=== PATIENT | male | born 1985 | race Caucasian/White ===

== ENCOUNTER 2016-12-03 02:55 | Emergency (ER) | payer OTHER ==
[2016-12-03 05:27] VITALS: BP 131/71
--- NOTE | 2016-12-03 05:27 | ED Physician Documentation ---
PD HPI SKIN - Stated complaint Stated Complaint: AMANDA ANKLE RASH - Chief complaint Chief Complaint: Wound - History obtained from History obtained from: Patient - History of Present Illness Timing - onset: Yesterday Timing - details: Gradual onset, Constant Location: RLE, LLE Quality / character: Painful, Swelling Contributing factors: Unknown Similar symptoms before: Has not had sx before Recently seen: Not recently seen Review of Systems Constitutional: denies: Fever Skin: reports: Rash PD PAST MEDICAL HISTORY - Past Medical History Cardiovascular: None Respiratory: Other Neuro: Head injury Endocrine/Autoimmune: None GI: None : None HEENT: None Psych: Post traumatic stress disorder Musculoskeletal: None Derm: None - Past Surgical History Past Surgical History: Yes Derm: Other - Present Medications Home Medications: Ambulatory Orders Medication Instructions Recorded Confirmed Sulfamethox/Trimeth 800/160 1 each PO BID #14 tablet 12/03/16 [Bactrim Ds 800/160] - Allergies Allergies/Adverse Reactions: Allergies Allergy/AdvReac Type Severity Reaction Status Date / Time erythromycin base Allergy Unknown Verified 12/23/14 10:38 - Social History Does the pt smoke?: Yes Smoking Status: Current every day smoker Does the pt drink ETOH?: Yes Does the pt have substance abuse?: No - Immunizations Immunizations are current?: Yes PD ED PE NORMAL - Vitals Vital signs reviewed: Yes - General General: Alert and oriented X 3, No acute distress, Well developed/nourished - Extremities Extremities: No edema PD ED PE EXPANDED - Extremities Feet visual: 1 - rash 2 - rash Results - Vitals Vitals: Oxygen O2 Source Room air PD MEDICAL DECISION MAKING - ED course Complexity details: considered differential, d/w patient Departure - Departure Disposition: 01 Home, Self Care Clinical Impression: Cellulitis Condition: Good Instructions: ED Infec Skin Cellulitis Prescriptions: Sulfamethox/Trimeth 800/160 [Bactrim Ds 800/160] 1 each PO BID #14 tablet Discharge Date/Time: 12/03/16 05:49
[2016-12-03] MEDS ORDERED: SULFAMETH/TRIMETH DS 800/160 MG TABLET PO STA (05:39)
[2016-12-03] MEDS ORDERED: SULFAMETH/TRIMETH DS 800/160 MG TABLET PO ONE (05:48)
== END 2016-12-03 05:49 | disposition home or self-care (01) ==
LOC: ED 02:55
DX: L03.116 Cellulitis of left lower limb (principal); L03.115 Cellulitis of right lower limb; F17.200 Nicotine dependence, unspecified, uncomplicated
CPT/HCPCS: 99283; A9270

== ENCOUNTER 2017-04-15 12:38 | Emergency (ER) | payer BC, OTHER ==
[2017-04-15 12:59] VITALS: BP 126/83
--- NOTE | 2017-04-15 13:13 | ED Physician Documentation ---
History of Present Illness - Stated complaint Stated Complaint: R LEG ABCESS - Chief complaint Chief Complaint: General - History obtained from History obtained from: Patient - History of Present Illness Timing: Other (He was exposed to staph at work by a coworker. He noticed a painless spot above the medial right ankle today while showering and is quite worried about it. No fevers.) Review of Systems Constitutional: denies: Fever, Chills Cardiac: reports: Reviewed and negative Respiratory: reports: Reviewed and negative PD PAST MEDICAL HISTORY - Past Medical History Cardiovascular: None Respiratory: Other Neuro: Head injury Endocrine/Autoimmune: None GI: None : None HEENT: None Psych: Post traumatic stress disorder Musculoskeletal: None Derm: None - Past Surgical History Past Surgical History: Yes Derm: Other - Allergies Allergies/Adverse Reactions: Allergies Allergy/AdvReac Type Severity Reaction Status Date / Time erythromycin base Allergy Unknown Verified 04/15/17 12:59 - Social History Does the pt smoke?: Yes Smoking Status: Current every day smoker Does the pt drink ETOH?: Yes Does the pt have substance abuse?: No - Immunizations Immunizations are current?: Yes PD ED PE NORMAL - Vitals Vital signs reviewed: Yes - General General: Alert and oriented X 3, No acute distress - Extremities Extremities: Other (2 small areas of ecchymosis (one nickel sized, on quarter sized) just above the medial malleolus of the right ankle that are nontender, no warmth or cellulitis or calf tenderness.) Results - Vitals Vitals: Vital Signs - 24 hr 04/15/17 12:57 Temperature 37.1 C Heart Rate 74 Respiratory 18 Rate Blood Pressure 126/83 H O2 Saturation 99 Oxygen O2 Source Room air Departure - Departure Disposition: 01 Home, Self Care Clinical Impression: Traumatic ecchymosis of right lower leg Qualifiers: Encounter type: initial encounter Qualified Code(s): S80.11XA - Contusion of right lower leg, initial encounter Condition: Good Record reviewed to determine appropriate education?: Yes Comments: If it worsens or becomes red or becomes painful please return for reevaluation or if you run a fever. Discharge Date/Time: 04/15/17 13:17
== END 2017-04-15 13:17 | disposition home or self-care (01) ==
LOC: ED 12:38
DX: S80.11XA Contusion of right lower leg, initial encounter (principal); X58.XXXA Exposure to other specified factors, initial encounter; F17.200 Nicotine dependence, unspecified, uncomplicated
CPT/HCPCS: 99281; 99282

== ENCOUNTER 2017-04-24 12:56 | Emergency (ER) | payer BC ==
[2017-04-24] MEDS ORDERED: DEXAMETHASONE 10 MG/ML VIAL PO STA (13:46)
--- NOTE | 2017-04-24 13:48 | ED Physician Documentation ---
PD HPI URI - Stated complaint Stated Complaint: THROAT PX - Chief complaint Chief Complaint: Heent - History obtained from History obtained from: Patient - History of Present Illness Timing - onset: Last night Timing duration: Days (1) Timing details: Gradual onset Pain level max: 5 Pain level now: 5 Associated symptoms: Fever, Chills, Nasal congestion, Rhinorrhea, Sore throat, Dry cough. No: Dyspnea, NVD, Bilateral edema Contributing factors: Sick contact Improves by: Rest Worsened by: Activity, Breathing Recently seen: Not recently seen Review of Systems Constitutional: reports: Fever, Chills Nose: reports: Rhinorrhea / runny nose, Congestion Throat: reports: Sore throat Cardiac: denies: Chest pain / pressure Respiratory: reports: Cough GI: denies: Nausea, Vomiting Skin: denies: Rash Musculoskeletal: denies: Neck pain, Back pain Neurologic: denies: Headache PD PAST MEDICAL HISTORY - Past Medical History Past Medical History: Yes Cardiovascular: None Respiratory: Other Neuro: Head injury Endocrine/Autoimmune: None GI: None : None HEENT: None Psych: Post traumatic stress disorder Musculoskeletal: None Derm: None - Past Surgical History Past Surgical History: Yes Derm: Other - Present Medications Home Medications: Ambulatory Orders Medication Instructions Recorded Confirmed Benzonatate [Tessalon Perle] 100 - 200 mg PO TID PRN #30 capsule 04/24/17 Cetirizine HCl/Pseudoephedrine 1 each PO BID PRN #30 tab.er.12h 04/24/17 [Zyrtec-D Tablet] Ibuprofen [Motrin] 800 mg PO Q8H PRN #30 tablet 04/24/17 - Allergies Allergies/Adverse Reactions: Allergies Allergy/AdvReac Type Severity Reaction Status Date / Time erythromycin base Allergy Unknown Verified 04/24/17 13:06 - Social History Does the pt smoke?: No Smoking Status: Never smoker Does the pt drink ETOH?: Yes Does the pt have substance abuse?: No - Immunizations Immunizations are current?: Yes PD ED PE NORMAL - Vitals Vital signs reviewed: Yes - General General: Alert and oriented X 3, No acute distress, Well developed/nourished - HEENT HEENT: PERRL, Ears normal, Moist mucous membranes, Other (Mild posterior oropharyngeal erythema without tonsillar exudates. Uvula midline. Normal phonation. No trismus) - Neck Neck: Supple, no meningeal sign, No adenopathy - Cardiac Cardiac: RRR, Strong equal pulses - Respiratory Respiratory: No respiratory distress, Clear bilaterally - Abdomen Abdomen: Soft, Non tender, Non distended - Derm Derm: Warm and dry - Extremities Extremities: No edema, No calf tenderness / cord - Neuro Neuro: Alert and oriented X 3 - Psych Psych: Normal mood, Normal affect Results - Vitals Vitals: Vital Signs - 24 hr 04/24/17 04/24/17 13:04 14:39 Temperature 36.4 C L 36.3 C L Heart Rate 58 L 58 L Respiratory 18 16 Rate Blood Pressure 134/59 H 123/86 H O2 Saturation 96 98 Oxygen O2 Source Room air - Labs Labs: Laboratory Tests 04/24/17 04/24/17 13:17 13:57 Influenza A (Rapid) Negative Influenza B (Rapid) Negative Influenza Types A,B Ag - Group A Strep Rapid Negative PD MEDICAL DECISION MAKING - ED course Complexity details: reviewed results, re-evaluated patient, considered differential, d/w patient ED course: Patient is a 32-year-old male who presents to the emergency department what appears to be a viral syndrome. Negative influenza. Negative rapid strep. He is well-appearing, nontoxic. Tolerating p.o. without difficulty. Well- hydrated. No evidence of pneumonia clinically. Will continue supportive care and follow-up with his doctor. Patient counseled regarding signs and symptoms for which I believe and urgent re-evaluation would be necessary. Patient with good understanding of and agreement to plan and is comfortable going home at this time This document was made in part using voice recognition software. While efforts are made to proofread this document, sound alike and grammatical errors may occur. Departure - Departure Disposition: 01 Home, Self Care Clinical Impression: Viral syndrome Condition: Good Instructions: ED Viral Syndrome Follow-Up: your,doctor in 1 week [Other] Prescriptions: Benzonatate [Tessalon Perle] 100 - 200 mg PO TID PRN #30 capsule PRN Reason: Cough Cetirizine HCl/Pseudoephedrine [Zyrtec-D Tablet] 1 each PO BID PRN #30 tab.er.12h PRN Reason: Nasal Congestion Ibuprofen [Motrin] 800 mg PO Q8H PRN #30 tablet PRN Reason: PAIN &/OR FEVER Comments: Return if you worsen. Drink plenty of fluids and rest. Forms: Activity restrictions Discharge Date/Time: 04/24/17 14:41
[2017-04-24 14:39] VITALS: BP 123/86
== END 2017-04-24 14:41 | disposition home or self-care (01) ==
LOC: ED 12:56
DX: B34.9 Viral infection, unspecified (principal)
CPT/HCPCS: 87070; 87275; 87276; 87430; 99283

== ENCOUNTER 2017-12-17 13:51 | Outpatient (CLI) | payer BC ==
--- NOTE | 2017-12-17 20:02 | XRAY Report ---
Reason: ASTHMA Procedure Date: 12/17/2017 Accession Number: [id number] / [id number] Procedure: XR - Chest 2 View X-Ray CPT Code: 18187 FULL RESULT: EXAM: CHEST RADIOGRAPHY EXAM DATE: 12/17/2017 02:21 PM. CLINICAL HISTORY: ASTHMA. COMPARISON: XR CHEST PA AND LAT 03/13/2012 10:58 AM. TECHNIQUE: 2 views. FINDINGS: Heart size is normal. No consolidation, pleural effusion, or pneumothorax. Coarse parenchymal markings bilaterally, as well as hyperexpanded, hyperlucent lung piedra, likely related to known chronic airways disease. IMPRESSION: Chronic airways disease. No evidence of focal pneumonia. RADIA
== END 2017-12-17 13:52 | disposition home or self-care (01) ==
LOC: DI 13:51
PROVIDERS: ATTEND Specialist
DX: J45.909 Unspecified asthma, uncomplicated (principal)
CPT/HCPCS: 71046

== ENCOUNTER 2018-01-16 14:54 | Outpatient (CLI) | payer BC ==
--- NOTE | 2018-01-16 23:05 | Ultrasound Report ---
Reason: LEFT SIDE OF NECK MASS Procedure Date: 01/16/2018 Accession Number: [id number] / [id number] Procedure: US - Head or Neck Soft Tissue CPT Code: FULL RESULT: EXAM: NECK ULTRASOUND EXAM DATE: 01/16/2018 04:04 PM. CLINICAL HISTORY: 2 cm left neck mass located 3 cm below the jaw. COMPARISON: None. TECHNIQUE: Real-time sonographic imaging was performed by the knitting machine operator helper utilizing color-flow. Multiple lead generation representative static images were saved for review. FINDINGS: Targeted evaluation of the area of palpable concern reveals normal appearance of the underlying left submandibular gland, which measures 3.9 x 1.1 x 3.8 cm. No mass, fluid collection, or adenopathy. IMPRESSION: Normal appearing submandibular gland corresponding to the area of concern. RADIA
== END 2018-01-16 14:55 | disposition home or self-care (01) ==
LOC: DI 14:54
PROVIDERS: ATTEND Specialist
DX: R22.1 Localized swelling, mass and lump, neck (principal)
CPT/HCPCS: 76536

== ENCOUNTER 2018-06-25 13:40 | Emergency (ER) | payer BC ==
[2018-06-25 13:57] VITALS: BP 133/82
--- NOTE | 2018-06-25 14:00 | ED Physician Documentation ---
PD HPI URI - Stated complaint Stated Complaint: THROAT PAIN - Chief complaint Chief Complaint: Heent - History obtained from History obtained from: Patient - History of Present Illness Timing - onset: How many days ago (2-3) Timing duration: Days Timing details: Gradual onset, Waxing and waning Associated symptoms: Sore throat. No: Fever Recently seen: Clinic (He had similar symptoms about a month ago and was on Augmentin for 2 weeks with clearance of his symptoms after several days to week and had been without symptoms for 2 weeks. He now has a return of the similar throat pain on the left tonsil area.) Review of Systems Constitutional: denies: Fever Nose: denies: Sinus pressure / pain Throat: reports: Sore throat Respiratory: denies: Cough PD PAST MEDICAL HISTORY - Past Medical History Cardiovascular: None Respiratory: Other Endocrine/Autoimmune: None GI: None : None HEENT: None Psych: Post traumatic stress disorder Musculoskeletal: None Derm: None - Past Surgical History Past Surgical History: Yes Derm: Other - Present Medications Home Medications: Ambulatory Orders Medication Instructions Recorded Confirmed Cephalexin [Keflex] 500 mg PO TID #30 capsule 06/25/18 Dexamethasone [Decadron] 4 mg PO DAILY #5 tablet 06/25/18 Gabapentin 0 mg 06/25/18 Tramadol HCl 50 mg PO Q6H PRN #15 tablet 06/25/18 - Allergies Allergies/Adverse Reactions: Allergies Allergy/AdvReac Type Severity Reaction Status Date / Time erythromycin base Allergy Unknown Verified 06/25/18 13:57 - Social History Does the pt smoke?: No Smoking Status: Never smoker Does the pt drink ETOH?: Yes Does the pt have substance abuse?: No - Immunizations Immunizations are current?: Yes PD ED PE NORMAL - Vitals Vital signs reviewed: Yes - General General: Alert and oriented X 3, Well developed/nourished - HEENT HEENT: No: Pharynx benign (tonsils with swelling and exudate. No peritonsillar swelling.) - Neck Neck: Supple, no meningeal sign, Other (anterior adenopathy.) - Cardiac Cardiac: RRR, No murmur - Respiratory Respiratory: Clear bilaterally - Derm Derm: Normal color, Warm and dry, No rash Results - Vitals Vitals: Vital Signs - 24 hr 06/25/18 13:50 Temperature 36.1 C L Heart Rate 63 Respiratory 16 Rate Blood Pressure 133/82 H O2 Saturation 97 Oxygen O2 Source Room air PD MEDICAL DECISION MAKING - ED course Complexity details: considered differential, d/w patient Departure - Departure Disposition: 01 Home, Self Care Clinical Impression: Acute tonsillitis Qualifiers: Pharyngitis/tonsillitis etiology: unspecified etiology Qualified Code(s): J03.90 - Acute tonsillitis, unspecified Condition: Stable Record reviewed to determine appropriate education?: Yes Instructions: ED Strep Pharyngitis Poss Follow-Up: [facility] [Provider Group] Prescriptions: Cephalexin [Keflex] 500 mg PO TID #30 capsule Dexamethasone [Decadron] 4 mg PO DAILY #5 tablet Tramadol HCl 50 mg PO Q6H PRN #15 tablet PRN Reason: Pain Comments: Stay well-hydrated. Tylenol or ibuprofen if needed for pains. Use Decadron daily for 5 days for inflammation of the tonsil. Cephalexin as prescribed for the infection. Add Tramadol as needed for pains. Recheck if not improving over the next few days. Discharge Date/Time: 06/25/18 14:44
[2018-06-25] MEDS ORDERED: DEXAMETHASONE 10 MG/ML VIAL PO STA (14:28)
[2018-06-25] MEDS ORDERED: NAPROXEN 250 MG TABLET PO STA (14:28)
[2018-06-25] MEDS ORDERED: CHERRY SYRUP 10 ML UDC PO ONE (14:28)
[2018-06-25] MEDS ORDERED: cephALEXin 250 MG CAPSULE PO STA (14:28)
== END 2018-06-25 14:44 | disposition home or self-care (01) ==
LOC: ED 13:40
DX: J03.90 Acute tonsillitis, unspecified (principal)
CPT/HCPCS: 99283; A9270

== ENCOUNTER 2019-06-20 11:49 | Emergency (ER) | payer BC ==
[2019-06-20 12:04] VITALS: BP 126/84
--- NOTE | 2019-06-20 12:27 | ED Physician Documentation ---
PD HPI HEENT - Stated complaint Stated Complaint: HAIRY TONGUE - Chief complaint Chief Complaint: Heent - History obtained from History obtained from: Patient (34-year-old gentleman presents presents with mild tongue discomfort over the last couple of days. He has had thrush before from asthma inhalers and worries that might be it. Currently he is only on albuterol though. No sore throat.) Review of Systems Constitutional: denies: Fever, Chills Cardiac: denies: Chest pain / pressure, Palpitations Respiratory: denies: Dyspnea, Cough PD PAST MEDICAL HISTORY - Past Medical History Cardiovascular: None Respiratory: Other Endocrine/Autoimmune: None GI: None : None HEENT: None Psych: Post traumatic stress disorder Musculoskeletal: None Derm: None - Past Surgical History Past Surgical History: Yes Derm: Other - Present Medications Home Medications: Ambulatory Orders Medication Instructions Recorded Confirmed Gabapentin 360 mg PO BID 06/25/18 - Allergies Allergies/Adverse Reactions: Allergies Allergy/AdvReac Type Severity Reaction Status Date / Time erythromycin base Allergy Unknown Verified 06/20/19 12:04 - Social History Does the pt smoke?: No Smoking Status: Never smoker Does the pt drink ETOH?: Yes Does the pt have substance abuse?: No - Immunizations Immunizations are current?: Yes PD ED PE NORMAL - Vitals Vital signs reviewed: Yes - General General: Alert and oriented X 3, No acute distress - HEENT HEENT: Other (He has a mild case of hairy tongue. Tonsils are normal, no adenopathy. No evidence of thrush.) - Neuro Neuro: Alert and oriented X 3, Normal speech Results - Vitals Vitals: Vital Signs - 24 hr 06/20/19 11:59 Temperature 37 C Heart Rate 63 Respiratory 17 Rate Blood Pressure 126/84 H O2 Saturation 98 Oxygen O2 Source Room air Departure - Departure Disposition: 01 Home, Self Care Clinical Impression: Brown hairy tongue Condition: Good Record reviewed to determine appropriate education?: Yes Comments: As discussed this is a mild self-limiting condition, you should increase oral hygiene. Return for new or worsening symptoms. Follow-up with your dentist, next available appointment.
== END 2019-06-20 12:31 | disposition home or self-care (01) ==
LOC: ED 11:49
DX: K14.3 Hypertrophy of tongue papillae (principal)
CPT/HCPCS: 99281; 99282

== ENCOUNTER 2019-08-30 16:42 | Outpatient (CLI) | payer BC | END 2019-08-30 16:43 | disposition critical access hospital (66) | LOC: EMS 16:42 | PROVIDERS: ATTEND Surgery | DX: R45.851 Suicidal ideations (principal) | CPT/HCPCS: A0425; A0429 ==

== ENCOUNTER 2019-08-30 17:00 | Emergency (ER) | payer BC ==
[2019-08-30 17:34] LABS: BASOPHILS # (AUTO) 0.1 10^3/uL (0.0-0.1); BASOPHILS % (AUTO) 0.6 %; EOSINOPHILS # (AUTO) 0.2 10^3/uL (0.0-0.7); EOSINOPHILS % (AUTO) 2.5 %; HGB - HEMOGLOBIN 14.4 g/dL (14.0-18.0); LYMPHOCYTES # (AUTO) 2.1 10^3/uL (1.5-3.5); LYMPHOCYTES % (AUTO) 25.3 %; MEAN CORPUSCULAR HEMOGLOBIN 29.6 pg (27.0-31.0); MEAN CORPUSCULAR HGB CONC 33.2 g/dL (32.0-36.0); MEAN CORPUSCULAR VOLUME 89.1 fL (80.0-94.0); MEAN PLATELET VOLUME 9.7 fL (7.4-11.4); MONOCYTES # (AUTO) 0.7 10^3/uL (0.0-1.0); MONOCYTES % (AUTO) 7.8 %; NEUTROPHILS # (AUTO) 5.3 10^3/uL (1.5-6.6); NEUTROPHILS % (AUTO) 63.4 %; PLT - PLATELET COUNT 239 10^3/uL (130-450); RED BLOOD COUNT 4.87 10^6/uL (4.70-6.10); RED CELL DISTRIBUTION WIDTH 12.8 % (12.0-15.0); WHITE BLOOD COUNT 8.4 x10^3/uL (4.8-10.8)
[2019-08-30 17:45] LABS: ACETAMINOPHEN < 10 ug/mL (10-30); ALBUMIN 4.6 g/dL (3.2-5.5); ALBUMIN/GLOBULIN RATIO 1.5 (1.0-2.2); ALKALINE PHOSPHATASE 55 IU/L (42-121); ALT ALANINE AMINOTRANSFERASE 42 IU/L (10-60); AST ASPARTATE AMINOTRANSFERASE 50 IU/L (10-42); BILIRUBIN,TOTAL 1.1 mg/dL (0.2-1.0); BUN - BLOOD UREA NITROGEN 13 mg/dL (6-20); CALCIUM 9.4 mg/dL (8.5-10.3); CARBON DIOXIDE - CO2 29 mmol/L (21-32); CHLORIDE 101 mmol/L (101-111); GLUCOSE 92 mg/dL (70-100); LIPASE 28 U/L (22-51); SALICYLATE < 6.0 mg/dL; SODIUM 138 mmol/L (135-145); TOTAL PROTEIN 7.6 g/dL (6.7-8.2)
--- NOTE | 2019-08-30 17:47 | ED Physician Documentation ---
History of Present Illness - Stated complaint Stated Complaint: MHE - Chief complaint Chief Complaint: MHE - History obtained from History obtained from: Patient, EMS - History of Present Illness Timing: Prior to arrival - Additonal information Additional information: 34-year-old gentleman brought to the emergency department through EMS when his mental health provider [facility] requested that he be transported to the hospital for suicidal ideation. His psychologist is Dr. Silva with the [facility] was trying to arrange a bed for inpatient mental health examination. We called psych at the [facility] and they reports that they do not have any bed availability. Patient reports that he has thoughts of self-harm. He has he attempted to use a pistol in the past (2016 pistol misfired) Today He would like to drown himself. He does not feel safe to go home. He denies auditory or visual hallucinations. 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 Meds: gabapentin and trazadone prn for sleep Denies that he has every been on any antidepressants or mood stabilizers Review of Systems Constitutional: denies: Fever, Chills, Myalgias Cardiac: denies: Chest pain / pressure, Palpitations, Pedal edema Respiratory: denies: Dyspnea, Cough, Hemoptysis GI: denies: Abdominal Pain, Abdominal Swelling : denies: Dysuria, Frequency Skin: denies: Rash, Lesions Musculoskeletal: denies: Neck pain Psychiatric: reports: Depressed, Suicidal, Insomnia. denies: Hallucinations, Delusions PD PAST MEDICAL HISTORY - Past Medical History Cardiovascular: None Respiratory: Other Endocrine/Autoimmune: None GI: None : None HEENT: None Psych: Post traumatic stress disorder Musculoskeletal: None Derm: None - Past Surgical History Past Surgical History: Yes Derm: Other - Present Medications Home Medications: Ambulatory Orders Medication Instructions Recorded Confirmed Gabapentin 360 mg PO BID 06/25/18 08/30/19 traZODone [Desyrel] 1 tab PO DAILY 08/30/19 08/30/19 - Allergies Allergies/Adverse Reactions: Allergies Allergy/AdvReac Type Severity Reaction Status Date / Time erythromycin base Allergy Unknown Verified 08/30/19 17:23 - Social History Does the pt smoke?: No Smoking Status: Never smoker Does the pt drink ETOH?: Yes Does the pt have substance abuse?: No - Immunizations Immunizations are current?: Yes PD ED PE NORMAL - General General: Alert and oriented X 3, No acute distress, Well developed/nourished - HEENT HEENT: Atraumatic, PERRL, EOMI - Neck Neck: No adenopathy - Cardiac Cardiac: RRR, No murmur - Respiratory Respiratory: No respiratory distress, Clear bilaterally - Abdomen Abdomen: Normal bowel sounds, Non tender - Back Back: No CVA TTP - Extremities Extremities: No deformity, No tenderness to palpate - Neuro Neuro: Alert and oriented X 3, fbi profiler 2-12 intact, No motor deficit Eye Opening: Spontaneous Motor: Obeys Commands Verbal: Oriented GCS Score: 15 - Psych Psych: Other (Depressed affect. Reports that he does not feel safe for discharge. Has thoughts of self-harm with the intention of drowning himself.) Results - Vitals Vitals: Vital Signs - 24 hr 08/30/19 08/30/19 17:11 19:31 Temperature 37.1 C Heart Rate 57 L 52 L Respiratory 16 16 Rate Blood Pressure 133/83 H 134/84 H O2 Saturation 98 100 Oxygen O2 Source Room air - Labs Labs: Laboratory Tests 08/30/19 08/30/19 08/30/19 17:24 17:24 17:24 WBC 8.4 RBC 4.87 Hgb 14.4 Hct 43.4 MCV 89.1 MCH 29.6 MCHC 33.2 RDW 12.8 Plt Count 239 MPV 9.7 Neut # (Auto) 5.3 Lymph # (Auto) 2.1 Stone # (Auto) 0.7 Eos # (Auto) 0.2 Baso # (Auto) 0.1 Absolute Nucleated RBC 0.00 Nucleated RBC % 0.0 Sodium 138 Potassium 3.9 Chloride 101 Carbon Dioxide 29 Anion Gap 8.0 BUN 13 Creatinine 1.0 Estimated GFR (MDRD) 85 L Glucose 92 Calcium 9.4 Total Bilirubin 1.1 H AST 50 H ALT 42 Alkaline Phosphatase 55 Total Protein 7.6 Albumin 4.6 Globulin 3.0 Albumin/Globulin Ratio 1.5 Lipase 28 TSH 1.34 Urine Color Urine Clarity Urine pH Ur Specific [place] Urine Protein Urine Glucose (UA) Urine Ketones Urine Occult Blood Urine Nitrite Urine Bilirubin Urine Urobilinogen Ur Leukocyte Esterase Ur Microscopic Review Urine Culture Comments Salicylates < 6.0 Urine Opiates Screen Ur Oxycodone Screen Urine Methadone Screen Ur Propoxyphene Screen Acetaminophen < 10 L Ur Barbiturates Screen Ur Tricyclics Screen Ur Phencyclidine Scrn Ur Amphetamine Screen U Methamphetamines Scrn U Benzodiazepines Scrn Urine Cocaine Screen U Cannabinoids Screen Ethyl Alcohol < 5.0 08/30/19 18:29 WBC RBC Hgb Hct MCV MCH MCHC RDW Plt Count MPV Neut # (Auto) Lymph # (Auto) Stone # (Auto) Eos # (Auto) Baso # (Auto) Absolute Nucleated RBC Nucleated RBC % Sodium Potassium Chloride Carbon Dioxide Anion Gap BUN Creatinine Estimated GFR (MDRD) Glucose Calcium Total Bilirubin AST ALT Alkaline Phosphatase Total Protein Albumin Globulin Albumin/Globulin Ratio Lipase TSH Urine Color YELLOW Urine Clarity CLEAR Urine pH 6.5 Ur Specific [place] <=1.005 Urine Protein NEGATIVE Urine Glucose (UA) NEGATIVE Urine Ketones NEGATIVE Urine Occult Blood NEGATIVE Urine Nitrite NEGATIVE Urine Bilirubin NEGATIVE Urine Urobilinogen 0.2 (NORMAL) Ur Leukocyte Esterase NEGATIVE Ur Microscopic Review NOT INDICATED Urine Culture Comments NOT INDICATED Salicylates Urine Opiates Screen NEGATIVE Ur Oxycodone Screen NEGATIVE Urine Methadone Screen NEGATIVE Ur Propoxyphene Screen NEGATIVE Acetaminophen Ur Barbiturates Screen NEGATIVE Ur Tricyclics Screen NEGATIVE Ur Phencyclidine Scrn NEGATIVE Ur Amphetamine Screen NEGATIVE U Methamphetamines Scrn NEGATIVE U Benzodiazepines Scrn NEGATIVE Urine Cocaine Screen NEGATIVE U Cannabinoids Screen POSITIVE H Ethyl Alcohol PD MEDICAL DECISION MAKING - ED course Complexity details: reviewed results, re-evaluated patient, d/w patient ED course: 34-year-old former gentleman presents to the emergency department for thoughts of suicidal ideation. His current plan would be to weigh himself down and drown himself. He seeks help voluntarily. - He is medically cleared. Tox screen + for cannabis only - I have spoken with the [facility] and they report that they have no bed availability and with current COVID-19 they are not excepting transfers - We will attempt to call different psychiatric facilities overnight to try and find a safe plan for this gentleman. However otherwise I have placed a social work consult for him to be seen in the a.m. - [facility] would not accept without a negative COVID 19 which is pending. - Emi Charles reports a capacity [facility] is evaluating the chart and will call us later if he is accepted for transfer Departure - Departure Clinical Impression: Suicidal ideation
[2019-08-30 18:35] LABS: MUDS CUTOFF CONCENTRATIONS CUTOFF CONC BELOW:
[2019-08-30 18:45] LABS: BILIRUBIN,URINE NEGATIVE (NEGATIVE); GLUCOSE, URINE (UA) NEGATIVE (NEGATIVE); KETONES,URINE (UA) NEGATIVE (NEGATIVE); LEUKOCYTE ESTERASE, URINE NEGATIVE (NEGATIVE); NITRITE,URINE NEGATIVE (NEGATIVE); OCCULT BLOOD,URINE NEGATIVE (NEGATIVE); PH,URINE 6.5 PH (5.0-7.5); PROTEIN,URINE NEGATIVE (NEGATIVE); UROBILINOGEN,URINE 0.2 (NORMAL) E.U./dL (NORMAL)
[2019-08-30 18:49] LABS: CLARITY,URINE CLEAR (CLEAR)
[2019-08-30 18:58] LABS: AMPHETAMINE SCREEN,URINE NEGATIVE (NEGATIVE); BENZODIAZEPINES SCREEN, URINE NEGATIVE (NEGATIVE); COCAINE SCREEN URINE NEGATIVE (NEGATIVE); METHADONE SCREEN, URINE NEGATIVE (NEGATIVE); METHAMPHETAMINES SCREEN, URINE NEGATIVE (NEGATIVE); OPIATE SCREEN, URINE NEGATIVE (NEGATIVE); OXYCODONE SCREEN, URINE NEGATIVE (NEGATIVE); PROPOXYPHENE SCREEN, URINE NEGATIVE (NEGATIVE); TRICYCLIC ANTIDEPRESSANT,URINE NEGATIVE (NEGATIVE)
[2019-08-31 07:14] VITALS: BP 126/62
[2019-08-31] MEDS ORDERED: MUPIROCIN 2% OINT 1 GM TOP STA (08:00)
== END 2019-08-31 08:15 ==
LOC: EDUNIT# → ED 17:00
DX: F32.9 Major depressive disorder, single episode, unspecified (principal); R45.851 Suicidal ideations; F43.10 Post-traumatic stress disorder, unspecified; Z11.59 Encounter for screening for other viral diseases
CPT/HCPCS: 36415; 80320; 80329; 81003; 83690; 87635; 99284; 99285; A9270; 80053; 80306; 80307; 81001; 81599; 84443; 85025; 87086

== ENCOUNTER 2020-04-09 17:37 | Emergency (ER) | payer BC ==
[2020-04-09 17:43] VITALS: BP 155/85
[2020-04-09 18:01] LABS: RAPID STREP SCREEN Negative (Negative)
[2020-04-09] MEDS ORDERED: IBUPROFEN 800 MG TABLET PO STA (18:04)
[2020-04-09] MEDS ORDERED: predniSONE 20 MG TABLET PO STA (18:05)
--- NOTE | 2020-04-09 18:06 | ED Physician Documentation ---
PD HPI HEENT - Stated complaint Stated Complaint: THROAT PX - Chief complaint Chief Complaint: Heent - History obtained from History obtained from: Patient (Developed bilateral ear pain, sore throat with spots in his mouth starting today. No associated fevers or cough.) Review of Systems Constitutional: reports: Reviewed and negative Ears: reports: Reviewed and negative Nose: reports: Reviewed and negative PD PAST MEDICAL HISTORY - Past Medical History Cardiovascular: None Respiratory: Other Endocrine/Autoimmune: None GI: None : None HEENT: None Psych: Post traumatic stress disorder Musculoskeletal: None Derm: None - Past Surgical History Past Surgical History: Yes Derm: Other - Present Medications Home Medications: Ambulatory Orders Medication Instructions Recorded Confirmed traZODone [Desyrel] 1 tab PO DAILY 08/30/19 04/09/20 Gabapentin [Neurontin] 300 mg PO TID 04/09/20 04/09/20 predniSONE [Deltasone] 60 mg PO DAILY 5 Days #15 tablet 04/09/20 - Allergies Allergies/Adverse Reactions: Allergies Allergy/AdvReac Type Severity Reaction Status Date / Time erythromycin base Allergy Unknown Verified 04/09/20 17:40 - Social History Does the pt smoke?: No Smoking Status: Never smoker Does the pt drink ETOH?: Yes Does the pt have substance abuse?: No - Immunizations Immunizations are current?: Yes PD ED PE NORMAL - Vitals Vital signs reviewed: Yes - General General: Alert and oriented X 3, No acute distress - HEENT HEENT: PERRL, EOMI, Ears normal (No otitis, But he has sclerosis) - Neck Neck: No adenopathy, Other (He has ulcers on the soft palate and buccal mucosa with generalized redness of the oropharynx without specific signs of tonsillitis.) - Neuro Neuro: Alert and oriented X 3, Normal speech - Psych Psych: Normal mood, Normal affect Results - Vitals Vitals: Vital Signs - 24 hr 04/09/20 17:40 Temperature 36.5 C Heart Rate 88 Respiratory 16 Rate Blood Pressure 155/85 H O2 Saturation 96 Oxygen O2 Source Room air - Labs Labs: Laboratory Tests 04/09/20 17:44 Group A Strep Rapid Negative Departure - Departure Disposition: 01 Home, Self Care Clinical Impression: Viral syndrome Condition: Good Record reviewed to determine appropriate education?: Yes Instructions: ED Viral Syndrome Prescriptions: predniSONE [Deltasone] 60 mg PO DAILY 5 Days #15 tablet Comments: Your strep test is negative and exam is inconsistent with strep. It looks more like a viral process. Return for new or worsening symptoms but the steroids should help with the inflammation.
== END 2020-04-09 18:10 | disposition home or self-care (01) ==
LOC: ED 17:37
DX: B34.9 Viral infection, unspecified (principal); K12.1 Other forms of stomatitis; K13.79 Other lesions of oral mucosa; H73.899 Other specified disorders of tympanic membrane, unspecified ear
CPT/HCPCS: 87070; 87430; 99283; 99284; A9270; J7512; 87077

== ENCOUNTER 2020-10-17 04:13 | Emergency (ER) | payer OTHER, BC ==
--- NOTE | 2020-10-17 05:27 | ED Physician Documentation ---
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 Patient states he also was feeling nauseated and a little agitated. His skin was abnormally pale. Much of the symptomatology has resolved by now since patient has been out of the vaporized area for a couple of hours. No other complaints at this time. No fevers or chills. No chronic lung disease. Review of Systems Ten Systems: 10 systems reviewed and negative Constitutional: reports: Reviewed and negative Eyes: reports: Reviewed and negative Ears: reports: Reviewed and negative Nose: reports: Reviewed and negative Throat: reports: Reviewed and negative Cardiac: reports: Reviewed and negative Respiratory: reports: Cough GI: reports: Nausea : reports: Reviewed and negative Skin: reports: Reviewed and negative Musculoskeletal: reports: Reviewed and negative Neurologic: reports: Reviewed and negative Psychiatric: reports: Reviewed and negative Endocrine: reports: Reviewed and negative Immunocompromised: reports: Reviewed and negative PD PAST MEDICAL HISTORY - Past Medical History Past Medical History: Yes Cardiovascular: None Respiratory: Other Endocrine/Autoimmune: None GI: None : None HEENT: None Psych: Post traumatic stress disorder Musculoskeletal: None Derm: None Other Past Medical History: neuropathy - Past Surgical History Past Surgical History: Yes Derm: Other - Present Medications Home Medications: Ambulatory Orders Medication Instructions Recorded Confirmed traZODone [Desyrel] 1 tab PO DAILY 08/30/19 10/17/20 Gabapentin [Neurontin] 300 mg PO TID 04/09/20 10/17/20 predniSONE [Deltasone] 60 mg PO DAILY 5 Days #15 tablet 04/09/20 - Allergies Allergies/Adverse Reactions: Allergies Allergy/AdvReac Type Severity Reaction Status Date / Time erythromycin base Allergy Unknown Verified 10/17/20 04:27 - Social History Does the pt smoke?: No Smoking Status: Never smoker Does the pt drink ETOH?: Yes Does the pt have substance abuse?: No - Immunizations Immunizations are current?: Yes PD ED PE NORMAL - Vitals Vital signs reviewed: Yes - General General: Alert and oriented X 3, No acute distress, Well developed/nourished - HEENT HEENT: Atraumatic, PERRL, EOMI, Moist mucous membranes - Neck Neck: Supple, no meningeal sign - Cardiac Cardiac: RRR, No murmur, Strong equal pulses - Respiratory Respiratory: Clear bilaterally - Abdomen Abdomen: Soft, Non tender, Non distended - Derm Derm: Normal color, Warm and dry, No rash - Extremities Extremities: No deformity, No edema - Neuro Neuro: Alert and oriented X 3 - Psych Psych: Normal mood, Normal affect Results - Vitals Vitals: Vital Signs - 24 hr 10/17/20 10/17/20 10/17/20 04:27 04:31 05:41 Temperature 36.4 C L 36.4 C L 36.5 C Heart Rate 68 68 66 Respiratory 21 21 18 Rate Blood Pressure 141/88 H 141/88 H 130/95 H O2 Saturation 99 99 97 Oxygen O2 Source Room air - EKG (time done) 0429 Rate: Rate (enter#) (56) Rhythm: NSR Odon: Normal Intervals: Normal CO QRS: Normal Ischemia: Normal ST segments Compare to prior EKG: Old EKG unavailable Computer interpretation: Agree with computer - Rads (name of study) CXR Radiology: Final report received, EMP read indepedently, See rad report (neg) PD MEDICAL DECISION MAKING - ED course Complexity details: reviewed results, re-evaluated patient, considered differential, d/w patient ED course: The patient was worked up with EKG and chest x-ray series and both looked quite good actually. I discussed with the patient the best treatment for his symptoms is to stay away from the chemicals for a few days so he can recover. 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 We have discussed the usual indications for return. Departure - Departure Disposition: 01 Home, Self Care Clinical Impression: Toxic effect of unspecified gases, fumes and vapors, accidental (unintent ional), initial encounter Condition: Stable Instructions: ED Inhalation Chemical Comments: Your chest x-ray shows some possible, slight inflammation in the bottom of your right lung. Other than that, though, your x-ray looks good. Your EKG also looks good. At this point in time, the most important thing is to stay away from the chemicals until you are feeling better. You should also continue to push for the company to provide you with the proper safety equipment so that you do not continue to have exposure to these vapors. Long-term exposure can not only damage your lungs, but also your brain cells. Please take the next couple of days off to allow yourself time to recover before you go back to work. Forms: Activity restrictions Discharge Date/Time: 10/17/20 05:56
[2020-10-17 05:41] VITALS: BP 130/95
--- NOTE | 2020-10-17 09:29 | XRAY Report ---
PROCEDURE: Chest 1 View X-Ray INDICATIONS: chest pain TECHNIQUE: One view of the chest was acquired. COMPARISON: 12/17/2017 FINDINGS: Surgical changes and devices: None. Lungs and pleura: No pleural effusions or pneumothorax. Lungs are clear. Mediastinum: Mediastinal contours appear normal. Heart size is normal. Bones and chest wall: No suspicious bony lesions. Overlying soft tissues appear unremarkable. IMPRESSION: No acute cardiopulmonary disease. Reviewed by: Nguyen Bowser MD on 10/17/2020 9:28 AM PDT Approved by: Nguyen Bowser MD on 10/17/2020 9:28 AM PDT Station ID: [id number]
== END 2020-10-17 05:56 | disposition home or self-care (01) ==
LOC: ED 04:13
DX: T59.91XA Toxic effect of unspecified gases, fumes and vapors, accidental (unintentional), initial encounter (principal)
CPT/HCPCS: 93005; 99283

== ENCOUNTER 2021-02-08 15:40 | Outpatient (CLI) | payer BC, OTHER ==
[2021-02-09 00:22] LABS: CHLAMYDIA TRACHOMATIS DNA NEGATIVE (NEGATIVE); NEISSERIA GONORRHOEAE DNA NEGATIVE (NEGATIVE)
== END 2021-02-08 23:59 | disposition home or self-care (01) ==
LOC: LAB 15:40
PROVIDERS: ATTEND Physician Assistant
DX: R30.0 Dysuria (principal)
CPT/HCPCS: 87491; 87591; 87661

== ENCOUNTER 2021-04-09 08:00 | Outpatient (CLI) | payer BC, OTHER ==
[2021-04-09 11:47] LABS: MUDS CUTOFF CONCENTRATIONS CUTOFF CONC BELOW:
[2021-04-09 18:28] LABS: BASOPHILS # (AUTO) 0.1 10^3/uL (0.0-0.1); BASOPHILS % (AUTO) 0.4 %; EOSINOPHILS # (AUTO) 0.2 10^3/uL (0.0-0.7); EOSINOPHILS % (AUTO) 1.4 %; HCT - HEMATOCRIT 46.8 % (42.0-52.0); HGB - HEMOGLOBIN 15.5 g/dL (14.0-18.0); LYMPHOCYTES # (AUTO) 4.1 10^3/uL (1.5-3.5); LYMPHOCYTES % (AUTO) 34.4 %; MEAN CORPUSCULAR HEMOGLOBIN 30.1 pg (27.0-31.0); MEAN CORPUSCULAR HGB CONC 33.1 g/dL (32.0-36.0); MEAN CORPUSCULAR VOLUME 90.9 fL (80.0-94.0); MEAN PLATELET VOLUME 10.5 fL (7.4-11.4); MONOCYTES # (AUTO) 1.2 10^3/uL (0.0-1.0); MONOCYTES % (AUTO) 9.7 %; NEUTROPHILS # (AUTO) 6.4 10^3/uL (1.5-6.6); NEUTROPHILS % (AUTO) 53.8 %; PLT - PLATELET COUNT 289 10^3/uL (130-450); RED BLOOD COUNT 5.15 10^6/uL (4.70-6.10)
[2021-04-09 18:30] LABS: BILIRUBIN,URINE NEGATIVE (NEGATIVE); GLUCOSE, URINE (UA) NEGATIVE (NEGATIVE); KETONES,URINE (UA) NEGATIVE (NEGATIVE); LEUKOCYTE ESTERASE, URINE NEGATIVE (NEGATIVE); NITRITE,URINE NEGATIVE (NEGATIVE); OCCULT BLOOD,URINE NEGATIVE (NEGATIVE); PH,URINE 6.5 PH (5.0-7.5); PROTEIN,URINE NEGATIVE (NEGATIVE); UROBILINOGEN,URINE 0.2 (NORMAL) E.U./dL (NORMAL)
[2021-04-09 18:49] LABS: ALBUMIN/GLOBULIN RATIO 1.4 (1.0-2.2); BILIRUBIN,TOTAL 0.5 mg/dL (0.2-1.0); CALCIUM 9.8 mg/dL (8.5-10.3); CLARITY,URINE CLEAR (CLEAR); POTASSIUM 3.9 mmol/L (3.5-5.0); TOTAL PROTEIN 8.7 g/dL (6.7-8.2)
[2021-04-09 18:50] LABS: AMPHETAMINE SCREEN,URINE NEGATIVE (NEGATIVE); BACTERIA,URINE None Seen /HPF (None Seen); BARBITURATE SCREEN,UR NEGATIVE (NEGATIVE); BENZODIAZEPINES SCREEN, URINE NEGATIVE (NEGATIVE); COCAINE SCREEN URINE NEGATIVE (NEGATIVE); METHADONE SCREEN, URINE NEGATIVE (NEGATIVE); METHAMPHETAMINES SCREEN, URINE NEGATIVE (NEGATIVE); OPIATE SCREEN, URINE NEGATIVE (NEGATIVE); OXYCODONE SCREEN, URINE NEGATIVE (NEGATIVE); PROPOXYPHENE SCREEN, URINE NEGATIVE (NEGATIVE); RBC,URINE None Seen /HPF (0-5); SQUAMOUS EPITHELIAL CELL,UR NONE SEEN (<= Few); THC CANNABINOID SCREEN, URINE POSITIVE (NEGATIVE); TRICYCLIC ANTIDEPRESSANT,URINE NEGATIVE (NEGATIVE); WBC,URINE 0-3 /HPF (0-3)
== END 2021-04-09 23:59 | disposition home or self-care (01) ==
LOC: LAB.N 08:00
PROVIDERS: ATTEND Nurse Practitioner
DX: R10.9 Unspecified abdominal pain (principal)
CPT/HCPCS: 36415; 80053; 80306; 81001; 82150; 83690; 85025; 87086

== ENCOUNTER 2021-04-10 11:05 | Emergency (ER) | payer BC, OTHER ==
--- NOTE | 2021-04-10 11:38 | ED Physician Documentation ---
History of Present Illness - Stated complaint Stated Complaint: LT SIDE PAIN - Chief complaint Chief Complaint: Abd Pain - Additonal information Additional information: 36-year-old male presents the emergency department for evaluation of left lower quadrant abdominal pain. He also has intermittent dysuria and difficulty urinating. Symptoms began about 3 months ago in mid December. States that he was tested for STDs and ultimately found negative. He finds it in the morning after drinking a lot he feels like his kidneys drain causing pressure in his urethra. No fevers, no vomiting. No pertinent past surgical history of the abdomen. Patient states that the pain was the worst it ever been this morning thus he presents to the ER. Review of Systems Constitutional: denies: Fever, Chills Nose: reports: Reviewed and negative Throat: reports: Reviewed and negative Cardiac: reports: Reviewed and negative Respiratory: reports: Reviewed and negative GI: reports: Abdominal Pain. denies: Nausea, Vomiting : reports: Dysuria. denies: Hematuria, Discharge Skin: denies: Rash, Lesions Musculoskeletal: reports: Reviewed and negative Neurologic: reports: Reviewed and negative PD PAST MEDICAL HISTORY - Past Medical History Cardiovascular: None Respiratory: Other Endocrine/Autoimmune: None GI: None : None HEENT: None Psych: Post traumatic stress disorder Musculoskeletal: None Derm: None - Past Surgical History Past Surgical History: Yes Derm: Other - Present Medications Home Medications: Ambulatory Orders Medication Instructions Recorded Confirmed traZODone [Desyrel] 50 mg PO DAILY 08/30/19 04/10/21 Gabapentin [Neurontin] 1,200 mg PO TID 04/09/20 04/10/21 - Allergies Allergies/Adverse Reactions: Allergies Allergy/AdvReac Type Severity Reaction Status Date / Time erythromycin base Allergy Unknown Verified 04/10/21 11:09 - Social History Does the pt smoke?: No Smoking Status: Never smoker Does the pt drink ETOH?: Yes Does the pt have substance abuse?: No - Immunizations Immunizations are current?: Yes PD ED PE NORMAL - General General: Alert and oriented X 3, No acute distress - HEENT HEENT: PERRL - Neck Neck: Supple, no meningeal sign, No adenopathy - Cardiac Cardiac: RRR, No murmur, No gallop - Abdomen Abdomen: Normal bowel sounds, Soft. No: Non tender (Tenderness of the left lower quadrant and left flank without guarding or rebound. 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 Eye Opening: Spontaneous Motor: Obeys Commands Verbal: Oriented GCS Score: 15 - Psych Psych: Normal mood Results - Vitals Vitals: Vital Signs - 24 hr 04/10/21 04/10/21 11:11 14:00 Temperature 36.5 C 36.7 C Heart Rate 73 69 Respiratory 20 16 Rate Blood Pressure 128/81 H 119/89 H O2 Saturation 97 97 Oxygen O2 Source Room air - Labs Labs: Laboratory Tests 04/10/21 04/10/21 04/10/21 11:35 11:35 11:44 WBC 8.6 RBC 5.04 Hgb 14.9 Hct 44.3 MCV 87.9 MCH 29.6 MCHC 33.6 RDW 13.0 Plt Count 283 MPV 9.3 Neut # (Auto) 4.9 Lymph # (Auto) 2.6 Darke # (Auto) 0.9 Eos # (Auto) 0.2 Baso # (Auto) 0.1 Absolute Nucleated RBC 0.00 Nucleated RBC % 0.0 Sodium 136 Potassium 4.1 Chloride 99 L Carbon Dioxide 27 Anion Gap 10.0 BUN 21 H Creatinine 1.0 Estimated GFR (MDRD) 84 L Glucose 81 Calcium 9.6 Total Bilirubin 0.5 AST 46 H ALT 52 Alkaline Phosphatase 61 Total Protein 8.0 Albumin 4.6 Globulin 3.4 Albumin/Globulin Ratio 1.4 Lipase 32 Urine Color YELLOW Urine Clarity CLEAR Urine pH 6.0 Ur Specific [place] 1.020 Urine Protein NEGATIVE Urine Glucose (UA) NEGATIVE Urine Ketones NEGATIVE Urine Occult Blood TRACE-INTA Urine Nitrite NEGATIVE Urine Bilirubin NEGATIVE Urine Urobilinogen 0.2 (NORMAL) Ur Leukocyte Esterase NEGATIVE Ur Microscopic Review NOT INDICATED Urine Culture Comments NOT INDICATED - Rads (name of study) CT abd Radiology: Final report received (No definite acute intra-abdominal abnormality. Specifically no evidence of diverticulosis or obstructive uropathy.) PD MEDICAL DECISION MAKING - ED course Complexity details: reviewed old records, reviewed results, re-evaluated patient, considered differential, d/w patient ED course: 36-year-old male presents to the emergency department for evaluation of 3 months intermittent left lower quadrant abdominal pain however over the last week symptoms have become more persistent. He was also noting some changes in his urinary frequency and pain with urination. On exam I was able to reproduce some mild left flank and CVA tenderness. His screening labs showed no leukocytosis worrisome electrolyte abnormality or findings of infection in the urine/hematuria. CT of the abdomen also did not reveal any obstructive uropathy or diverticulitis. Given the duration of the symptoms it is not likely this gentleman has an occult surgical pathology. I did recommend patient take Tylenol and ibuprofen for discomfort. Advise close follow-up with primary care provider. Emergent return precautions otherwise discussed. Departure - Departure Disposition: 01 Home, Self Care Clinical Impression: LLQ abdominal pain Condition: Stable Record reviewed to determine appropriate education?: Yes Instructions: ED Abdominal Pain Unkn Cause Male Comments: Artur henry are seen in the emergency department today for left lower abdominal pain that has been ongoing for quite a while. Your screening labs did not show any worrisome findings. At the time of your exam I was concerned that you could have a obstructing kidney stone or findings of diverticulitis. Reassuringly the CAT scan did not show any such findings. You do not have a hernia. The cause of your pain is not clear though I would like you to try taking ibuprofen or Tylenol [id number] at home for discomfort. If you find that the pain is worsening, you develop fevers, have uncontrolled vomiting then please return immediately to the ER for a second evaluation. Discharge Date/Time: 04/10/21 14:02
[2021-04-10 11:41] LABS: BASOPHILS # (AUTO) 0.1 10^3/uL (0.0-0.1); BASOPHILS % (AUTO) 0.7 %; EOSINOPHILS # (AUTO) 0.2 10^3/uL (0.0-0.7); EOSINOPHILS % (AUTO) 2.2 %; HCT - HEMATOCRIT 44.3 % (42.0-52.0); HGB - HEMOGLOBIN 14.9 g/dL (14.0-18.0); LYMPHOCYTES # (AUTO) 2.6 10^3/uL (1.5-3.5); LYMPHOCYTES % (AUTO) 29.8 %; MEAN CORPUSCULAR HEMOGLOBIN 29.6 pg (27.0-31.0); MEAN CORPUSCULAR HGB CONC 33.6 g/dL (32.0-36.0); MEAN CORPUSCULAR VOLUME 87.9 fL (80.0-94.0); MEAN PLATELET VOLUME 9.3 fL (7.4-11.4); MONOCYTES # (AUTO) 0.9 10^3/uL (0.0-1.0); MONOCYTES % (AUTO) 10.2 %; NEUTROPHILS # (AUTO) 4.9 10^3/uL (1.5-6.6); NEUTROPHILS % (AUTO) 56.9 %; PLT - PLATELET COUNT 283 10^3/uL (130-450); RED BLOOD COUNT 5.04 10^6/uL (4.70-6.10); WHITE BLOOD COUNT 8.6 x10^3/uL (4.8-10.8)
[2021-04-10] MEDS ORDERED: IOVERSOL 320 100 ML VIAL IVP ONE (11:46)
[2021-04-10 11:52] LABS: BILIRUBIN,URINE NEGATIVE (NEGATIVE); GLUCOSE, URINE (UA) NEGATIVE (NEGATIVE); KETONES,URINE (UA) NEGATIVE (NEGATIVE); LEUKOCYTE ESTERASE, URINE NEGATIVE (NEGATIVE); NITRITE,URINE NEGATIVE (NEGATIVE); OCCULT BLOOD,URINE TRACE-INTA (NEGATIVE); PROTEIN,URINE NEGATIVE (NEGATIVE); UROBILINOGEN,URINE 0.2 (NORMAL) E.U./dL (NORMAL)
[2021-04-10 11:54] LABS: ALBUMIN 4.6 g/dL (3.2-5.5); ALBUMIN/GLOBULIN RATIO 1.4 (1.0-2.2); BILIRUBIN,TOTAL 0.5 mg/dL (0.2-1.0); CALCIUM 9.6 mg/dL (8.5-10.3); POTASSIUM 4.1 mmol/L (3.5-5.0)
[2021-04-10 11:55] LABS: CLARITY,URINE CLEAR (CLEAR)
[2021-04-10] MEDS: SODIUM CHLORIDE 0.9% 1,000 ML IV STA (12:00)
[2021-04-10] MEDS: HYDROmorphone 1 MG/ML CARPUJECT IVP STA (12:04)
--- NOTE | 2021-04-10 13:37 | CT Report ---
PROCEDURE: Abdomen/Pelvis W INDICATIONS: LLQ and left flank pain CONTRAST: IV CONTRAST: Optiray 320 ml: 100 PO CONTRAST: *NO PO CONTRAST TECHNIQUE: After the administration of intravenous contrast, 5 mm thick sections acquired from the diaphragms to the symphysis. 5 mm thick coronal and sagittal reformats were acquired. For radiation dose reducti on, the following was used: automated exposure control, adjustment of mA and/or kV according to kelsea ent size. COMPARISON: None. FINDINGS: Image quality: Excellent. ABDOMEN: Lung bases: There is dependent atelectasis bilaterally. Heart size is normal. Solid organs:Evaluation of the liver demonstrates no focal hepatic lesions. Gallbladder appears withi n normal limits without calcified gallstones. Biliary system is non dilated. The spleen is normal in size. Pancreas enhances normally without peripancreatic fat stranding or fluid collections. No adre nal nodules. Kidneys demonstrate no hydronephrosis. There is symmetric enhancement of the kidneys bi laterally. No discrete renal stones identified. Peritoneum and bowel: Bowel loops demonstrate normal wall thickness and caliber. The appendix is nor mal in appearance. There is colonic diverticulosis without acute diverticulitis. No free fluid or air . Nodes and vessels: No retroperitoneal or mesenteric adenopathy by size criteria. Aorta and inferior vena cava are normal in size. Miscellaneous: No ventral hernias. PELVIS: Genitourinary: Bladder wall thickness is normal. Miscellaneous: No inguinal hernias or adenopathy. Bones: No suspicious bony lesions. No vertebral body compression fractures. IMPRESSION: 1. No definite acute intra-abdominal abnormality. Specifically, no evidence of diverticulitis or obst ructive uropathy. Reviewed by: Agustín Ruffin MD on 04/10/2021 1:36 PM [facility] Approved by: Agustín Ruffin MD on 04/10/2021 1:36 PM PST Station ID: [id number]
[2021-04-10 14:01] VITALS: BP 119/89
[2021-04-10] MEDS: IOVERSOL 320 100 ML VIAL IVP ONE (17:11)
== END 2021-04-10 14:02 | disposition home or self-care (01) ==
LOC: ED 11:05
DX: R10.32 Left lower quadrant pain (principal)
CPT/HCPCS: 36415; 74177; 80053; 81003; 83690; 85025; 96374; 99282; 99284; J1170; Q9967; 81001; 87086

== ENCOUNTER 2021-05-18 21:41 | Emergency (ER) | payer BC ==
[2021-05-18 22:04] VITALS: BP 144/77
--- NOTE | 2021-05-18 23:24 | ED Physician Documentation ---
PD HPI UPPER EXT INJURY - Stated complaint Stated Complaint: L WRIST INJURY - Chief complaint Chief Complaint: Trauma Ext - History obtained from History obtained from: Patient - History of Present Illness Location: Left, Wrist Type of injury: Fall Where injury occurred: Other (roller skating rink) Timing - onset: Enter time (21:00), Today Improved by: Rest Worsened by: Moving, Palpating Associated symptoms: Swelling. No: Weakness, Numbness Similar symptoms before: Has not had sx before Recently seen: Emergency Dept - Additonal information Additional information: c/o sudden onset left wrist pain , 9 PM tonight when he fell while roller skating. He is right hand dominant. Denies head injury, denies LOC. Review of Systems Musculoskeletal: reports: Joint pain, Joint swelling. denies: Neck pain, Back pain Neurologic: denies: Headache, Head injury PD PAST MEDICAL HISTORY - Past Medical History Cardiovascular: None Respiratory: Other Endocrine/Autoimmune: None GI: None : None HEENT: None Psych: Post traumatic stress disorder Musculoskeletal: None Derm: None - Past Surgical History Past Surgical History: Yes Derm: Other - Present Medications Home Medications: Ambulatory Orders Medication Instructions Recorded Confirmed traZODone [Desyrel] 50 mg PO DAILY 08/30/19 05/19/21 Gabapentin [Neurontin] 1,200 mg PO TID 04/09/20 05/19/21 - Allergies Allergies/Adverse Reactions: Allergies Allergy/AdvReac Type Severity Reaction Status Date / Time erythromycin base Allergy Unknown Verified 05/19/21 17:12 - Social History Does the pt smoke?: No Smoking Status: Never smoker Does the pt drink ETOH?: Yes Does the pt have substance abuse?: No - Immunizations Immunizations are current?: Yes PD ED PE NORMAL - Vitals Vital signs reviewed: Yes - General General: Alert and oriented X 3, No acute distress, Well developed/nourished - Derm Derm: Normal color, Warm and dry - Neuro Neuro: No sensory deficit (LTS intact distal LUE) PD ED PE EXPANDED - Extremities AMANDA UE/Hands Visual: 1 - swelling, tenderness Results - Vitals Vitals: Oxygen O2 Source Room air - Rads (name of study) left wrist xrays Radiology: Prelim report reviewed, See rad report left hand xrays Radiology: Prelim report reviewed, See rad report PD MEDICAL DECISION MAKING - ED course Complexity details: reviewed results, re-evaluated patient, considered differential, d/w patient ED course: fall onto outstretched LUE while roller skating tonight. No acute findings on left wrist xrays. Splint applied, results reviewed with patient. Follow up and return precautions discussed prior to discharge. Given ibuprofen in ED prior to discharge. Departure - Departure Disposition: Home, Self Care Clinical Impression: Left wrist sprain Qualifiers: Encounter type: initial encounter Qualified Code(s): S63.502A - Unspecified sp rain of left wrist, initial encounter Condition: Good Instructions: ED Splint Care MARTHA Hernandez Sprain Wrist Discharge Date/Time: 05/18/21 23:56
--- NOTE | 2021-05-18 23:36 | XRAY Report ---
PROCEDURE: Wrist 4 View LT INDICATIONS: fall, pain and tenderness TECHNIQUE: 4 views of the wrist were acquired. COMPARISON: None. FINDINGS: Bones: No acute fractures or dislocations. No suspicious bony lesions. Scaphoid view: Intact scaphoid. Soft tissues: No suspicious soft tissue calcifications. Mild soft tissue edema around the wrist. IMPRESSION: No acute osseous abnormality. If there is clinical concern or persistent symptoms, additional imaging such as repeat radiographs or advanced imaging (e.g. CT, MRI) may be helpful for further evaluation. Reviewed by: Ramakrishna Maldonado MD on 05/18/2021 11:36 PM PST Approved by: Ramakrishna Maldonado MD on 05/18/2021 11:36 PM [facility] Station ID: [id number]
--- NOTE | 2021-05-18 23:37 | XRAY Report ---
PROCEDURE: Hand 3 View LT INDICATIONS: fall, pain and tenderness TECHNIQUE: 4 views of the hand acquired. COMPARISON: None. FINDINGS: Bones: No acute fractures or dislocations. No suspicious bony lesions. Soft tissues: No suspicious soft tissue calcifications. Mild soft tissue edema at the dorsum of the hand. IMPRESSION: No acute osseous abnormality. If there is clinical concern or persistent symptoms, additional imaging such as repeat radiographs or advanced imaging (e.g. CT, MRI) may be helpful for further evaluation. Reviewed by: Ramakrishna Maldonado MD on 05/18/2021 11:37 PM PST Approved by: Ramakrishna Maldonado MD on 05/18/2021 11:37 PM PST Station ID: [id number]
[2021-05-18] MEDS ORDERED: IBUPROFEN 600 MG TABLET PO STA (23:40)
== END 2021-05-18 23:56 | disposition home or self-care (01) ==
LOC: ED 21:41
DX: S63.502A Unspecified sprain of left wrist, initial encounter (principal); W18.30XA Fall on same level, unspecified, initial encounter; Y93.51 Activity, roller skating (inline) and skateboarding
CPT/HCPCS: 29125; 73110; 73130; 99282; 99283; A9270

== ENCOUNTER 2021-05-19 16:58 | Emergency (ER) | payer BC ==
[2021-05-19 19:33] VITALS: BP 152/86
[2021-05-19] MEDS ORDERED: HYDROcod/ACETAM 5/325 MG TABLET PO STA (20:01)
--- NOTE | 2021-05-19 20:13 | ED Physician Documentation ---
History of Present Illness - Stated complaint Stated Complaint: L WRIST SWELLING/PAIN - Chief complaint Chief Complaint: Ext Problem - History obtained from History obtained from: Patient - History of Present Illness Pain level max: 7 Pain level now: 6 - Additonal information Additional information: Patient is a 36-year-old male who presents to the emergency department after a fall while rollerskating last night. He was seen here last night and negative x-rays of the left hand and left wrist. Placed in a Velcro splint. Continue to have pain today, increased swelling. Patient is right-handed. Worse with movement, better with rest Review of Systems Constitutional: denies: Fever, Chills GI: denies: Vomiting, Diarrhea Skin: denies: Rash Musculoskeletal: denies: Neck pain, Back pain Neurologic: denies: Headache, Head injury PD PAST MEDICAL HISTORY - Past Medical History Cardiovascular: None Respiratory: Other Endocrine/Autoimmune: None GI: None : None HEENT: None Psych: Post traumatic stress disorder Musculoskeletal: None Derm: None - Past Surgical History Past Surgical History: Yes Derm: Other - Present Medications Home Medications: Ambulatory Orders Medication Instructions Recorded Confirmed traZODone [Desyrel] 50 mg PO DAILY 08/30/19 05/19/21 Gabapentin [Neurontin] 1,200 mg PO TID 04/09/20 05/19/21 - Allergies Allergies/Adverse Reactions: Allergies Allergy/AdvReac Type Severity Reaction Status Date / Time erythromycin base Allergy Unknown Verified 05/19/21 17:12 - Social History Does the pt smoke?: No Smoking Status: Never smoker Does the pt drink ETOH?: Yes Does the pt have substance abuse?: No - Immunizations Immunizations are current?: Yes - POLST Patient has POLST: No PD ED PE NORMAL - Vitals Vital signs reviewed: Yes - General General: Alert and oriented X 3, No acute distress - HEENT HEENT: Moist mucous membranes - Neck Neck: Supple, no meningeal sign - Derm Derm: Warm and dry - Extremities Extremities: Other (Swelling and ecchymosis to the posterior aspect of the left hand, mainly the second and third MCP area. Neurovascularly intact. No gross deformity. Tenderness across the dorsum of the hand. Otherwise normal exam of the hand and wrist. ) Results - Vitals Vitals: Vital Signs - 24 hr 05/19/21 05/19/21 17:12 19:32 Temperature 36.5 C 36.3 C L Heart Rate 76 92 Respiratory 16 16 Rate Blood Pressure 142/72 H 152/86 H O2 Saturation 97 99 Oxygen O2 Source Room air Procedures - Splint (location) L hand Splint applied by: Physician, Tech Type of splint: Fiberglass, Short arm, Volar cock up Other: Patient tolerated well, No complications, Neurovascular intact PD MEDICAL DECISION MAKING - ED course Complexity details: reviewed old records, re-evaluated patient, considered differential, d/w patient ED course: The Velcro wrist splint appeared to be too tight and constricting, causing increased swelling. This was removed. Pain improved. We will place in a volar fiberglass splint for comfort for the hand and wrist sprain. No indication for repeat imaging. Neurovascularly intact. Patient counseled regarding signs and symptoms for which I believe and urgent re-evaluation would be necessary. Patient with good understanding of and agreement to plan and is comfortable going home at this time This document was made in part using voice recognition software. While efforts are made to proofread this document, sound alike and grammatical errors may occur. Departure - Departure Disposition: 01 Home, Self Care Clinical Impression: Sprain of left hand Qualifiers: Encounter type: initial encounter Qualified Code(s): S63.92XA - Sprain of unspecified part of left wrist and hand, initial encounter Left wrist sprain Qualifiers: Encounter type: initial encounter Qualified Code(s): S63.502A - Unspecified sprain of left wrist, initial encounter Condition: Good Instructions: ED Sprain Hand, ED Sprain Wrist Follow-Up: Your,doctor in 1 week [Other] Comments: Your x-rays from last night did not show any acute bony abnormalities. No fractures or dislocations. You can wear the splint as needed for comfort, but you should not wear it longer than a week. Please return if you worsen. Discharge Date/Time: 05/19/21 20:16
== END 2021-05-19 20:16 | disposition home or self-care (01) ==
LOC: ED 16:58
DX: S63.92XD Sprain of unspecified part of left wrist and hand, subsequent encounter (principal); S63.502D Unspecified sprain of left wrist, subsequent encounter; W18.30XD Fall on same level, unspecified, subsequent encounter; Y93.51 Activity, roller skating (inline) and skateboarding
CPT/HCPCS: 99282; A9270

== ENCOUNTER 2021-05-27 08:00 | Outpatient (CLI) | payer BC ==
--- NOTE | 2021-05-27 11:37 | XRAY Report ---
PROCEDURE: Wrist 4 View LT INDICATIONS: L WRIST SPRAIN TECHNIQUE: 4 views of the wrist were acquired. COMPARISON: May 18, 2021 FINDINGS: BONES: No acute, displaced fracture or dislocation. The carpal bones are normally aligned. SOFT TISSUES: No focal abnormality. IMPRESSION: 1.No acute osseous abnormality. If the patient's pain persists, consider CT or magnetic resonance imaging. Reviewed by: Max Cyr MD on 05/27/2021 11:35 AM PDT Approved by: Max Cyr MD on 05/27/2021 11:35 AM PDT Station ID: [id number]
== END 2021-05-27 23:59 | disposition home or self-care (01) ==
LOC: DI.N 08:00
PROVIDERS: ATTEND Family Medicine
DX: S63.502A Unspecified sprain of left wrist, initial encounter (principal)

== ENCOUNTER 2022-03-24 20:55 | Emergency (ER) | payer BC, OTHER ==
[2022-03-24] MEDS ORDERED: TETANUS/DIPHTHERIA/PERTUSSIS 0.5 ML SYRINGE IM ONE (21:12)
[2022-03-24] MEDS ORDERED: BUFFERED LIDOCAINE 10 ML SYRINGE SUBQ STA (21:12)
--- NOTE | 2022-03-24 21:57 | ED Physician Documentation ---
History of Present Illness - Stated complaint Stated Complaint: LT HAND LAC - Chief complaint Chief Complaint: Laceration - History obtained from History obtained from: Patient, Family - History of Present Illness Timing: Today Pain level max: 0 Pain level now: 0 - Additonal information Additional information: 37-year-old male presents to the emergency department with a left thumb laceration on a piece of metal at home. Last tetanus 2006. Nothing makes it better or worse. Bleeding controlled. No numbness or tingling. Patient is right-handed PD PAST MEDICAL HISTORY - Past Medical History Cardiovascular: None Respiratory: Other Endocrine/Autoimmune: None GI: None : None HEENT: None Psych: Post traumatic stress disorder Musculoskeletal: None Derm: None - Past Surgical History Past Surgical History: Yes Derm: Other - Present Medications Home Medications: Ambulatory Orders Medication Instructions Recorded Confirmed traZODone [Desyrel] 50 mg PO DAILY 08/30/19 05/19/21 Gabapentin [Neurontin] 1,200 mg PO TID 04/09/20 05/19/21 - Allergies Allergies/Adverse Reactions: Allergies Allergy/AdvReac Type Severity Reaction Status Date / Time erythromycin base Allergy Unknown Verified 03/24/22 21:06 - Social History Does the pt smoke?: No Smoking Status: Never smoker Does the pt drink ETOH?: Yes Does the pt have substance abuse?: No - Immunizations Immunizations are current?: Yes - POLST Patient has POLST: No PD ED PE NORMAL - Vitals Vital signs reviewed: Yes - General General: Alert and oriented X 3, No acute distress - Derm Derm: Warm and dry - Extremities Extremities: Other (Left hand - 2 cm laceration over the MCP joint. Superficial. Neurovascular intact. Full range of motion without pain. Tendon tested against resistance) - Neuro Neuro: Alert and oriented X 3 Results - Vitals Vitals: Vital Signs - 24 hr 03/24/22 03/24/22 21:00 22:01 Temperature 35.9 C L 36.5 C Heart Rate 52 L 88 Respiratory 17 16 Rate Blood Pressure 139/75 H 118/77 O2 Saturation 98 98 Oxygen O2 Source Room air Procedures - Laceration (location) L thumb Length in cm: 2 Wound type: Curved, Into subcut fat, Clean Neurovascular status: Sensory intact, Motor intact, Vascular intact Tendon involvement: Tendon intact Anesthesia: Lidocaine 1% Wound preparation: Irrigated copiously NS, Wound explored, To the base Skin layer closure: Nylon, Interrupted, Size #-0 - enter number (4), Sutures - enter # (5) Other: Patient tolerated well, No complications, Neurovascular intact, Dressing applied, Tetanus booster given PD Medical Decision Making - ED course Complexity details: considered differential, d/w patient ED course: 37-year-old male with a left thumb laceration. This was repaired. Tolerated well. Patient did have an episode of vasovagal syncope during the laceration repair. Patient was already sitting in bed. He began to feel lightheaded and sweaty and nauseated, he was laid back in bed a shelter monitor was applied as well as a pulse ox. No hypoxia. He did bradycardia down to around 40 bpm. After about 1 minute, his heart rate came back to the 60s, blood pressure increased and his symptoms resolved. Warnings of infection and instructions on wound care given at bedside. Also counseled on how to minimize scarring. Patient counseled regarding signs and symptoms for which I believe and urgent re-evaluation would be necessary. Patient with good understanding of and agreement to plan and is comfortable going home at this time This document was made in part using voice recognition software. While efforts are made to proofread this document, sound alike and grammatical errors may occur. Departure - Departure Disposition: 01 Home, Self Care Clinical Impression: Hand laceration Qualifiers: Encounter type: initial encounter Foreign body presence: without foreign body Laterality: left Qualified Code(s): S61.412A - Laceration without foreign body of left hand, initial encounter Condition: Good Instructions: ED Laceration Hand Follow-Up: your,doctor in 10-14 days for suture removal [Other] Comments: Please follow-up with your doctor in approximately 10 to 14 days for suture removal or you can return here. Keep the wound clean. Return for redness, swelling or drainage from the wound. Discharge Date/Time: 03/24/22 22:00
[2022-03-24 22:02] VITALS: BP 118/77
== END 2022-03-24 22:00 | disposition home or self-care (01) ==
LOC: ED 20:55
DX: S61.012A Laceration without foreign body of left thumb without damage to nail, initial encounter (principal); W26.8XXA Contact with other sharp object(s), not elsewhere classified, initial encounter; Z23 Encounter for immunization; Z71.85 Encounter for immunization safety counseling
CPT/HCPCS: 12001; 90471; 99281; 99282

== ENCOUNTER 2022-04-08 12:30 | Emergency (ER) | payer SELFPAY ==
[2022-04-08 12:49] VITALS: BP 119/71
--- NOTE | 2022-04-08 13:28 | ED Physician Documentation ---
PD HPI WOUND RECHECK - Stated complaint Stated Complaint: STITCHES REMOVAL - Chief complaint Chief Complaint: General - Histroy obtained from History obtained from: Patient - Additional information Additional information: Patient presenting for suture removal. He had 5 stitches placed into his left hand on March 24. He denies any redness, swelling or abnormal drainage or any pain. Review of Systems Constitutional: denies: Fever Skin: denies: Rash PD PAST MEDICAL HISTORY - Past Medical History Cardiovascular: None Respiratory: Other Endocrine/Autoimmune: None GI: None : None HEENT: None Psych: Post traumatic stress disorder Musculoskeletal: None Derm: None - Past Surgical History Past Surgical History: Yes Derm: Other - Present Medications Home Medications: Ambulatory Orders Medication Instructions Recorded Confirmed traZODone [Desyrel] 50 mg PO DAILY 08/30/19 05/19/21 Gabapentin [Neurontin] 1,200 mg PO TID 04/09/20 05/19/21 - Allergies Allergies/Adverse Reactions: Allergies Allergy/AdvReac Type Severity Reaction Status Date / Time erythromycin base Allergy Unknown Verified 04/08/22 12:49 - Social History Does the pt smoke?: No Smoking Status: Never smoker Does the pt drink ETOH?: Yes Does the pt have substance abuse?: No - Immunizations Immunizations are current?: Yes - POLST Patient has POLST: No PD ED PE NORMAL - General General: Alert and oriented X 3, No acute distress, Well developed/nourished - Respiratory Respiratory: No respiratory distress - Derm Derm: Warm and dry - Extremities Extremities: Other (Laceration over dorsum of left thumb with [address], no signs of dehiscence or wound infection, normal range of motion at digit without any pain or limitations) Results - Vitals Vitals: Vital Signs - 24 hr 04/08/22 12:47 Temperature 36.5 C Heart Rate 74 Respiratory 16 Rate Blood Pressure 119/71 O2 Saturation 99 Oxygen O2 Source Room air PD Medical Decision Making - ED course ED course: Pt here for suture removal. No signs of wound Signs or infection. Sutures were removed without complication.Patient counseled on concerning symptoms to return for. Departure - Departure Disposition: Home, Self Care Clinical Impression: Visit for suture removal Condition: Stable Instructions: ED Wound Check Sutr Remove No Infec Comments: You have 5 stitches that were removed from your left hand. At this time there is no signs of infection. Please continue to keep the wound clean and dry. If you have any worsening symptoms such as redness, increased pain, abnormal drainage then please consider return to the ER. Discharge Date/Time: 04/08/22 13:36
== END 2022-04-08 13:36 | disposition home or self-care (01) ==
LOC: ED 12:30
DX: S61.012D Laceration without foreign body of left thumb without damage to nail, subsequent encounter (principal); X58.XXXD Exposure to other specified factors, subsequent encounter
CPT/HCPCS: 99281; 99282

== ENCOUNTER 2022-04-28 13:00 | Emergency (ER) | payer BC, OTHER ==
[2022-04-28 13:31] LABS: BASOPHILS % (AUTO) 0.3 %; EOSINOPHILS # (AUTO) 0.3 10^3/uL (0.0-0.7); EOSINOPHILS % (AUTO) 1.8 %; HCT - HEMATOCRIT 41.2 % (42.0-52.0); HGB - HEMOGLOBIN 13.8 g/dL (14.0-18.0); LYMPHOCYTES # (AUTO) 2.4 10^3/uL (1.5-3.5); LYMPHOCYTES % (AUTO) 17.7 %; MEAN CORPUSCULAR HEMOGLOBIN 29.5 pg (27.0-31.0); MEAN CORPUSCULAR HGB CONC 33.5 g/dL (32.0-36.0); MONOCYTES # (AUTO) 0.9 10^3/uL (0.0-1.0); MONOCYTES % (AUTO) 6.8 %; NEUTROPHILS % (AUTO) 73.1 %; PLT - PLATELET COUNT 279 10^3/uL (130-450); RED BLOOD COUNT 4.68 10^6/uL (4.70-6.10); RED CELL DISTRIBUTION WIDTH 12.8 % (12.0-15.0); WHITE BLOOD COUNT 13.6 x10^3/uL (4.8-10.8)
--- NOTE | 2022-04-28 13:40 | XRAY Report ---
PROCEDURE: Chest 2 View X-Ray INDICATIONS: productive cough with SOA. TECHNIQUE: 2 views of the chest were acquired. COMPARISON: 10/17/2020 FINDINGS: Surgical changes and devices: None. Lungs and pleura: No pleural effusions or pneumothorax. Lungs are clear. Mediastinum: Mediastinal contours are normal. Heart size is normal. Bones and chest wall: No suspicious bony abnormalities. Soft tissues appear unremarkable. IMPRESSION: No acute cardiopulmonary process demonstrated radiographically. Reviewed by: Cortez Griffith MD on 04/28/2022 1:39 PM PST Approved by: Cortez Griffith MD on 04/28/2022 1:39 PM PST Station ID: [id number]
[2022-04-28 14:21] LABS: BILIRUBIN,TOTAL 0.6 mg/dL (0.2-1.0)
[2022-04-28 14:23] LABS: TOTAL PROTEIN 7.6 g/dL (6.7-8.2)
[2022-04-28 14:26] LABS: CALCIUM 9.1 mg/dL (8.5-10.3); POTASSIUM 4.3 mmol/L (3.5-5.0)
[2022-04-28 14:31] LABS: ALBUMIN 4.1 g/dL (3.2-5.5); ALBUMIN/GLOBULIN RATIO 1.2 (1.0-2.2)
--- NOTE | 2022-04-28 15:28 | ED Physician Documentation ---
PD HPI CHEST PAIN - Stated complaint Stated Complaint: CHEST PX,SOA - Chief complaint Chief Complaint: Cardiac - History obtained from History obtained from: Patient - History of Present Illness Timing - onset: How many weeks ago (2) Timing - onset during: Light activity Timing - details: Gradual onset (he had onset of chest congestion and cough that has persisted for 2 weeks. Has pain in anterior chest with coughing, and feeling of wheezing/dyspnea with activity.), Still present Quality: Pressure, Tightness, Aching Location: Substernal Radiation: Back. No: Neck Improved by: Rest Worsened by: Movement, Other (coughing) Associated symptoms: Shortness of air, Cough. No: Nausea, Vomiting, Feeling faint / dizzy Similar symptoms before: Has not had sx before Review of Systems Constitutional: reports: Chills, Myalgias. denies: Fever Nose: reports: Rhinorrhea / runny nose, Congestion Throat: denies: Sore throat Cardiac: reports: Chest pain / pressure. denies: Palpitations, Pedal edema, Calf pain Respiratory: reports: Dyspnea, Cough Neurologic: denies: Focal weakness, Numbness, Near syncope PD PAST MEDICAL HISTORY - Past Medical History Cardiovascular: None Respiratory: Other Endocrine/Autoimmune: None GI: None : None HEENT: None Psych: Post traumatic stress disorder Musculoskeletal: None Derm: None - Past Surgical History Past Surgical History: Yes Derm: Other - Present Medications Home Medications: Ambulatory Orders Medication Instructions Recorded Confirmed traZODone [Desyrel] 50 mg PO DAILY 08/30/19 05/19/21 Gabapentin [Neurontin] 1,200 mg PO TID 04/09/20 05/19/21 Albuterol Sulf [Ventolin Hfa 2 - 3 puffs INH QID #1 each 04/28/22 Inhaler] Amoxicillin 500 mg PO TID #21 cap 04/28/22 Benzonatate [Tessalon] 100 mg PO TID PRN #20 cap 04/28/22 dexAMETHasone [Decadron] 4 mg PO DAILY #5 tablet 04/28/22 - Allergies Allergies/Adverse Reactions: Allergies Allergy/AdvReac Type Severity Reaction Status Date / Time erythromycin base Allergy Unknown Verified 04/28/22 13:12 - Social History Does the pt smoke?: No Smoking Status: Never smoker Does the pt drink ETOH?: Yes Does the pt have substance abuse?: No - Immunizations Immunizations are current?: Yes - POLST Patient has POLST: No PD ED PE NORMAL - Vitals Vital signs reviewed: Yes - General General: Alert and oriented X 3, No acute distress, Well developed/nourished - HEENT HEENT: Pharynx benign - Neck Neck: Supple, no meningeal sign, No adenopathy - Cardiac Cardiac: RRR, No murmur - Respiratory Respiratory: No respiratory distress, Clear bilaterally - Abdomen Abdomen: Soft, Non tender - Derm Derm: Normal color, Warm and dry - Extremities Extremities: Normal ROM s pain, No edema, No calf tenderness / cord - Neuro Neuro: Alert and oriented X 3, Normal speech Results - Vitals Vitals: Vital Signs - 24 hr 04/28/22 04/28/22 13:07 16:08 Temperature 36.9 C 36.7 C Heart Rate 66 67 Respiratory 18 20 Rate Blood Pressure 124/78 135/64 H O2 Saturation 96 96 Oxygen O2 Source Room air - EKG (time done) 13;07 Rate: Rate (enter#) (71) Rhythm: NSR [place]: Normal Intervals: Normal NE QRS: Normal Ischemia: Normal ST segments. No: ST elevation c/w ischemia, ST depression - Labs Labs: Laboratory Tests 04/28/22 04/28/22 04/28/22 13:28 13:28 13:28 WBC 13.6 H RBC 4.68 L Hgb 13.8 L Hct 41.2 L MCV 88.0 MCH 29.5 MCHC 33.5 RDW 12.8 Plt Count 279 MPV 9.0 Neut # (Auto) 10.0 H Lymph # (Auto) 2.4 [place] # (Auto) 0.9 Eos # (Auto) 0.3 Baso # (Auto) 0.0 Absolute Nucleated RBC 0.00 Nucleated RBC % 0.0 Sodium 138 Potassium 4.3 Chloride 101 Carbon Dioxide 30 Anion Gap 7.0 BUN 20 Creatinine 1.0 Estimated GFR (MDRD) 84 L Glucose 79 Calcium 9.1 Total Bilirubin 0.6 AST 31 ALT 36 Alkaline Phosphatase 58 Troponin I High Sens 2.4 Total Protein 7.6 Albumin 4.1 Globulin 3.5 Albumin/Globulin Ratio 1.2 Lipase 35 - Rads (name of study) chest xray Radiology: Prelim report reviewed (no infiltrates, effusions, nor pTX. ), EMP read indepedently (no acute abnormality. ), See rad report PD Medical Decision Making - ED course Complexity details: reviewed results, re-evaluated patient (symptoms for weeks, with sputum production. Likely viral initially but could be that or bacterial at this point. ), considered differential (chest pain and tightness related to cough and sputum production for 2 weeks. CXR clear without infiltrates, effusion, PTX. ecg and trop normal. I feel the cause of symptoms likely related to bronchitis and he does not need any further cardiac workup. can treat the bronchitis.), d/w patient Departure - Departure Disposition: 01 Home, Self Care Clinical Impression: Lower resp. tract infection, Chest discomfort, Cough Condition: Stable Record reviewed to determine appropriate education?: Yes Instructions: ED Upper Resp Infec Abx Tx Prescriptions: Amoxicillin 500 mg PO TID #21 cap dexAMETHasone [Decadron] 4 mg PO DAILY #5 tablet Benzonatate [Tessalon] 100 mg PO TID PRN #20 cap PRN Reason: Cough Albuterol Sulf [Ventolin Hfa Inhaler] 2 - 3 puffs INH QID #1 each Comments: Your chest x-ray is clear without any signs of pneumonia. Your symptoms certainly sound like bronchitis however and given the duration of it, more likely now a bacterial mixed with most likely viral initially. Your EKG and blood test called troponin are normal so no signs of heart muscle inflammation associated with this. At this point would treat your condition with a combination of antibiotics amoxicillin 3 times a day for a week, and albuterol inhaler 2 to 3 puffs 4 times a day regularly for the next week as well. To that add Decadron for inflammation of the airways (this is a steroid type medicine). To that add benzonatate as needed for cough. Tylenol every 4-6 hours if needed for pains. Recheck if not improving over the next several days and resolved by 4 to 5 days. Return if worsening. I sent your prescriptions to [facility] in [place]. Discharge Date/Time: 04/28/22 16:17
[2022-04-28] MEDS ORDERED: BENZONATATE 100 MG CAPSULE PO STA (15:46)
[2022-04-28] MEDS ORDERED: AMOXICILLIN 250 MG CAPSULE PO STA (15:46)
[2022-04-28] MEDS ORDERED: ALBUTEROL 1 PUFF INH STA (15:46)
[2022-04-28] MEDS ORDERED: CHERRY SYRUP 10 ML UDC PO ONE (15:46)
[2022-04-28] MEDS ORDERED: DEXAMETHASONE 10 MG/ML VIAL PO STA (15:46)
[2022-04-28 16:14] VITALS: BP 135/64
== END 2022-04-28 16:17 | disposition home or self-care (01) ==
LOC: ED 13:00
DX: J22 Unspecified acute lower respiratory infection (principal)
CPT/HCPCS: 36415; 71046; 80053; 83690; 84484; 85025; 93005; 94640; 94664; 99284; A9270